=== PATIENT | female | born 1945 | race African-American/Black ===

== ENCOUNTER 2017-01-24 15:19 | Inpatient (IN) | payer MEDICARE, MEDICAID ==
[2017-01-24] VITALS: BP 129/70
[~2017-01-24] VITALS: Ht 162.6 cm; Wt 64.6 kg
[~2017-01-24 15:19] MED LIST: CLON0.1T PO; DIAZ5TAB4; DIAZ5TAB4 PO; FLUT1DIS5; LEVO750T46 PO; MONT10TA24 PO; MONT4TAB8; OXYC5CAP12 PO; PANT40TA4 PO; THEO80SO PO; THEOPHYLLINE PO
[2017-01-24 16:59] LABS: BG BASE EXCESS 4.7 mmol/L (-2.0-2.0); BG CARBOXYHEMOGLOBIN 2.6 % (0.5-1.5); BG DEOXYHEMOGLOBIN 3.9 % (0.0-5.0); BG HCO3 ACT 33.9 mmol/L (22.0-26.0); BG METHEMOGLOBIN 0.3 % (0.0-1.5); BG OXYHEMOGLOBIN 93.2 % (94.0-97.0); BG PH 7.256 (7.350-7.450); BG PO2 88.3 mmHg (75.0-100.0); BG SAMPLE SITE RIGHT RADIAL; BG TOTAL HEMOGLOBIN 11.6 g/dL (12.0-18.0); BG VENT MODE NASAL CANNULA
[2017-01-24 17:51] LABS: BASOPHILS % 0.7 % (0.0-2.0); EOSINOPHILS % 5.3 % (0.0-5.0); HEMATOCRIT. 32.5 % (36.0-48.0); HEMOGLOBIN. 10.4 g/dL (12.0-16.0); LYMPHOCYTES % 22.1 % (20.0-50.0); MEAN CORPUSCULAR VOLUME 90.3 fL (81.0-99.0); NEUTROPHILS % 62.9 % (40.0-76.0); PLATELET 229 x1000/uL (130-400); RED CELL DISTRIBUTION WIDTH 14.5 % (11.6-14.6)
[2017-01-24 17:52] LABS: PROTHROMBIN TIME 10.4 sec
[2017-01-24 18:00] LABS: CARBON DIOXIDE 39 mEq/L (21-32); CHLORIDE 98 mEq/L (98-107)
[2017-01-24 18:02] LABS: TROPONIN I < 0.02 ng/mL (0.00-0.04)
[2017-01-24] MEDS ORDERED: METHYLPREDNISOLONE SOD SUCC 125 MG/2 ML VIAL IV ONE (18:15)
[2017-01-24] MEDS ORDERED: IPRATROPIUM/ALBUTEROL 0.5-3(2.5)MG/3ML NEB HHN ONE (18:15)
[2017-01-24] MEDS ORDERED: KETO15CR TP (19:24)
[2017-01-24] MEDS ORDERED: TIOT18CA3 IH (19:24)
[2017-01-24] MEDS ORDERED: DILTIAZEM PO (19:24)
[2017-01-24] MEDS ORDERED: NITR0.4T3 SL (19:24)
[2017-01-24] MEDS ORDERED: FAMO20TA8 PO (19:24)
[2017-01-24 22:15] VITALS: BP 126/85
[2017-01-24] MEDS ORDERED: CLONIDINE 0.1MG TABLET PO PRN (23:45)
[2017-01-24] MEDS ORDERED: DOCUSATE SODIUM 100MG CAPSULE PO PRN (23:45)
[2017-01-24] MEDS ORDERED: IPRATROPIUM/ALBUTEROL 0.5-3(2.5)MG/3ML NEB INH PRN (23:45)
[2017-01-24] MEDS ORDERED: HYDROCODONE/ACETAMINOPHEN 5/325MG TABLET PO PRN (23:45)
[2017-01-24] MEDS ORDERED: ONDANSETRON HCL 4MG/2ML VIAL IV PRN (23:45)
[2017-01-24] MEDS ORDERED: NA PHOS,M-B/NA PHOS,DI-BA ENEMA 118ML PR PRN (23:45)
[2017-01-24] MEDS ORDERED: GUAIFENESIN 200MG/10ML SUGAR FREE UDC PO PRN (23:45)
[2017-01-24] MEDS ORDERED: ACETAMINOPHEN 650MG/20.3ML UDC GT PRN (23:45)
[2017-01-24] MEDS ORDERED: ACETAMINOPHEN 650MG SUPP PR PRN (23:45)
[2017-01-24] MEDS ORDERED: MAGNESIUM/ALUMINUM HYDROXIDE/SIMETHICONE 30ML UDC PO PRN (23:45)
[2017-01-24] MEDS ORDERED: DIPHENHYDRAMINE 50MG/ML VIAL IV PRN (23:45)
[2017-01-24] MEDS ORDERED: ACETAMINOPHEN 325MG TABLET PO PRN (23:45)
[2017-01-25] MEDS: METHYLPREDNISOLONE SOD SUCC 125 MG/2 ML VIAL IV SCH ×5 (00:48→23:43)
[2017-01-25] MEDS: IPRATROPIUM/ALBUTEROL 0.5-3(2.5)MG/3ML NEB INH SCH ×3 (01:29→13:48)
[2017-01-25 04:00] VITALS: BP 160/98
[2017-01-25] MEDS: SODIUM CHLORIDE 0.9% INJ 3ML FLUSH IVF SCH ×3 (05:19→21:55)
[2017-01-25 07:07] LABS: CHLORIDE 98 mEq/L (98-107); LDL CHOLESTEROL 107 mg/dL (5-100)
[2017-01-25 07:10] LABS: HDL CHOLESTEROL 93 mg/dL (40-59)
[2017-01-25 08:00] VITALS: BP 125/82
[2017-01-25 08:08] LABS: CARBON DIOXIDE 42 mEq/L (21-32)
[2017-01-25 09:24] LABS: BASOPHILS % 0.7 % (0.0-2.0); EOSINOPHILS % 0.2 % (0.0-5.0); HEMATOCRIT. 35.6 % (36.0-48.0); HEMOGLOBIN. 11.2 g/dL (12.0-16.0); LYMPHOCYTES % 10.5 % (20.0-50.0); MEAN CORPUSCULAR HEMOGLOBIN 28.5 pg (28.0-32.0); MEAN CORPUSCULAR VOLUME 90.7 fL (81.0-99.0); MEAN PLATELET VOLUME 9.1 fl (7.4-10.4); MONOCYTES % 0.8 % (2.0-8.0); NEUTROPHILS % 87.8 % (40.0-76.0); PLATELET 242 x1000/uL (130-400); RED BLOOD CELL COUNT 3.92 mill/uL (4.2-5.4); RED CELL DISTRIBUTION WIDTH 14.1 % (11.6-14.6)
[2017-01-25 09:39] LABS: BG BASE EXCESS 6.4 mmol/L (-2.0-2.0); BG CARBOXYHEMOGLOBIN 1.2 % (0.5-1.5); BG DEOXYHEMOGLOBIN 8.9 % (0.0-5.0); BG FRACTION INSPIRED OXYGEN 32; BG METHEMOGLOBIN 0.3 % (0.0-1.5); BG OXYHEMOGLOBIN 89.6 % (94.0-97.0); BG PCO2 90.9 mmHg (35.0-45.0); BG PH 7.228 (7.350-7.450); BG PO2 66.3 mmHg (75.0-100.0); BG SAMPLE SITE RIGHT BRACHIAL; BG TOTAL HEMOGLOBIN 12.8 g/dL (12.0-18.0); BG VENT MODE NASAL CANNULA
[2017-01-25 12:00] VITALS: BP 121/90
[2017-01-25 16:00] VITALS: BP 121/74
[2017-01-25] MEDS ORDERED: IPRATROPIUM/ALBUTEROL 0.5-3(2.5)MG/3ML NEB HHN PRN (17:15)
[2017-01-25 17:24] LABS: CLARITY URINE CLEAR (CLEAR); COLOR URINE YELLOW (YELLOW); GLUCOSE URINE NEGATIVE (NEGATIVE); KETONES URINE NEGATIVE (NEGATIVE); LEUKOCYTE ESTERASE URINE NEGATIVE (NEGATIVE); NITRITE URINE NEGATIVE (NEGATIVE); OCCULT BLOOD URINE NEGATIVE (NEGATIVE); PH URINE 5.5 (4.5-8.0); PROTEIN URINE 2+ (NEGATIVE); UROBILINOGEN URINE 0.2 E.U./dL (0.2-1.0)
[2017-01-25 17:36] LABS: *AMPHETAMINES SCREEN URINE NEGATIVE (NEGATIVE); *BARBITURATES SCREEN URINE NEGATIVE (NEGATIVE); *BENZODIAZEPINES SCREEN URINE PRESUMTIVE POSITIVE (NEGATIVE); *COCAINE SCREEN URINE NEGATIVE (NEGATIVE); CANNABINOID URINE SCREEN NEGATIVE (NEGATIVE); METHADONE URINE SCREEN NEGATIVE (NEGATIVE); OPIATES URINE SCREEN PRESUMTIVE POSITIVE (NEGATIVE); PHENCYCLIDINE URINE SCREEN NEGATIVE (NEGATIVE)
[2017-01-25] MEDS: THEOPHYLLINE ANHYDROUS 80 MG/15 ML 120ML PO SCH ×2 (18:21→23:43)
[2017-01-25] MEDS ORDERED: LEVOFLOXACIN 500MG PREMIX 100 ML IV NR (18:30)
[2017-01-25] MEDS ORDERED: NITROGLYCERIN 0.4MG TABLET SL SL PRN (18:42)
[2017-01-25] MEDS ORDERED: MONTELUKAST SODIUM 10MG TABLET PO SCH (18:45)
[2017-01-25] MEDS: PANTOPRAZOLE 40MG DR TABLET PO SCH (18:56)
[2017-01-25 20:00] VITALS: BP 147/90
[2017-01-25] MEDS: IPRATROPIUM/ALBUTEROL 0.5-3(2.5)MG/3ML NEB HHN SCH (20:02)
[2017-01-25 20:53] LABS: BG BASE EXCESS 9.6 mmol/L (-2.0-2.0); BG DEOXYHEMOGLOBIN 17.6 % (0.0-5.0); BG FRACTION INSPIRED OXYGEN 30; BG HCO3 ACT 39.2 mmol/L (22.0-26.0); BG METHEMOGLOBIN 0.3 % (0.0-1.5); BG OXYGEN SATURATION 82.2 % (92.0-98.5); BG OXYHEMOGLOBIN 81.1 % (94.0-97.0); BG PCO2 80.7 mmHg (35.0-45.0); BG PH 7.304 (7.350-7.450); BG PO2 46.8 mmHg (75.0-100.0); BG SAMPLE SITE RIGHT RADIAL; BG TOTAL HEMOGLOBIN 13.5 g/dL (12.0-18.0); BG VENT MODE MASK - CPAP; BG VENT RATE 18 set
[2017-01-26] VITALS: BP 131/81
[2017-01-26] MEDS: IPRATROPIUM/ALBUTEROL 0.5-3(2.5)MG/3ML NEB HHN SCH ×6 (00:33→20:59)
[2017-01-26] MEDS: SODIUM CHLORIDE 0.9% INJ 3ML FLUSH IVF SCH ×3 (05:20→23:52)
[2017-01-26] MEDS: THEOPHYLLINE ANHYDROUS 80 MG/15 ML 120ML PO SCH ×4 (05:20→23:52)
[2017-01-26] MEDS: METHYLPREDNISOLONE SOD SUCC 125 MG/2 ML VIAL IV SCH ×4 (05:20→23:52)
[2017-01-26 08:00] VITALS: BP 147/92
[2017-01-26] MEDS: PANTOPRAZOLE 40MG DR TABLET PO SCH (08:45)
[2017-01-26 12:00] VITALS: BP 109/72
[2017-01-26] MEDS: LEVOFLOXACIN 250MG PREMIX 50 ML IV SCH (14:14)
[2017-01-26 16:00] VITALS: BP_SYST 117; BP_SYST 124; BP_DIAS 68; BP_DIAS 88
[2017-01-26] MEDS: DIAZEPAM 5 MG TABLET PO SCH (17:39)
[2017-01-26 18:10] LABS: BG BASE EXCESS 5.7 mmol/L (-2.0-2.0); BG CARBOXYHEMOGLOBIN 0.6 % (0.5-1.5); BG DEOXYHEMOGLOBIN 5.8 % (0.0-5.0); BG FRACTION INSPIRED OXYGEN 36; BG HCO3 ACT 33.4 mmol/L (22.0-26.0); BG METHEMOGLOBIN 0.2 % (0.0-1.5); BG OXYGEN SATURATION 94.2 % (92.0-98.5); BG OXYHEMOGLOBIN 93.4 % (94.0-97.0); BG PCO2 63.9 mmHg (35.0-45.0); BG PH 7.336 (7.350-7.450); BG PO2 74.6 mmHg (75.0-100.0); BG SAMPLE SITE RIGHT RADIAL; BG VENT MODE NASAL CANNULA
[2017-01-26] MEDS ORDERED: CLONIDINE 0.1MG TABLET PO PRN (19:00)
[2017-01-26] MEDS: MONTELUKAST SODIUM 10MG TABLET PO SCH (19:45)
[2017-01-26] MEDS: FAMOTIDINE 20MG TABLET PO SCH (19:45)
[2017-01-26 19:57] LABS: HEMATOCRIT. 35.4 % (36.0-48.0); HEMOGLOBIN. 11.4 g/dL (12.0-16.0); MEAN CORPUSCULAR HEMOGLOBIN 28.8 pg (28.0-32.0); MEAN CORPUSCULAR VOLUME 89.6 fL (81.0-99.0); MEAN PLATELET VOLUME 9.1 fl (7.4-10.4); PLATELET 268 x1000/uL (130-400); RED BLOOD CELL COUNT 3.96 mill/uL (4.2-5.4); RED CELL DISTRIBUTION WIDTH 14.4 % (11.6-14.6)
[2017-01-26 20:00] VITALS: BP 126/81
[2017-01-26 20:25] LABS: CARBON DIOXIDE 35 mEq/L (21-32); CHLORIDE 96 mEq/L (98-107)
[2017-01-26] MEDS ORDERED: THEOPHYLLINE ANHYDROUS 80 MG/15 ML 120ML PO SCH (21:00)
[2017-01-26 21:04] LABS: PLATELET ESTIMATE NORMAL
[2017-01-27] VITALS: BP 114/86
[2017-01-27] MEDS: IPRATROPIUM/ALBUTEROL 0.5-3(2.5)MG/3ML NEB HHN SCH ×6 (00:40→21:36)
[2017-01-27 04:00] VITALS: BP 147/87
[2017-01-27] MEDS: DIAZEPAM 5 MG TABLET PO SCH ×2 (05:14→17:25)
[2017-01-27] MEDS: THEOPHYLLINE ANHYDROUS 80 MG/15 ML 120ML PO SCH ×4 (05:14→23:21)
[2017-01-27] MEDS: METHYLPREDNISOLONE SOD SUCC 125 MG/2 ML VIAL IV SCH ×3 (05:14→17:26)
[2017-01-27] MEDS: SODIUM CHLORIDE 0.9% INJ 3ML FLUSH IVF SCH ×3 (05:14→23:21)
[2017-01-27 08:00] VITALS: BP 142/96
[2017-01-27 08:17] LABS: BG BASE EXCESS 9.9 mmol/L (-2.0-2.0); BG CARBOXYHEMOGLOBIN 0.5 % (0.5-1.5); BG DEOXYHEMOGLOBIN 2.1 % (0.0-5.0); BG FRACTION INSPIRED OXYGEN 36; BG HCO3 ACT 39.7 mmol/L (22.0-26.0); BG METHEMOGLOBIN 0.2 % (0.0-1.5); BG OXYGEN SATURATION 97.9 % (92.0-98.5); BG OXYHEMOGLOBIN 97.2 % (94.0-97.0); BG PCO2 86.8 mmHg (35.0-45.0); BG PH 7.278 (7.350-7.450); BG PO2 115.6 mmHg (75.0-100.0); BG SAMPLE SITE RIGHT RADIAL; BG TOTAL HEMOGLOBIN 11.8 g/dL (12.0-18.0); BG VENT MODE NASAL CANNULA
[2017-01-27] MEDS: FAMOTIDINE 20MG TABLET PO SCH (08:17)
[2017-01-27] MEDS ORDERED: DIAZEPAM 5 MG TABLET PO SCH (09:00)
[2017-01-27 12:00] VITALS: BP 122/75
[2017-01-27] MEDS: LEVOFLOXACIN 250MG PREMIX 50 ML IV SCH (15:06)
[2017-01-27] MEDS: BUDESONIDE 0.5MG/2ML NEB HHN SCH (15:44)
[2017-01-27 16:00] VITALS: BP 108/71
[2017-01-27] MEDS: MONTELUKAST SODIUM 10MG TABLET PO SCH (17:25)
[2017-01-27 19:53] VITALS: BP 132/90
[2017-01-28] VITALS: BP 116/73
[2017-01-28] MEDS: IPRATROPIUM/ALBUTEROL 0.5-3(2.5)MG/3ML NEB HHN SCH ×5 (00:55→20:48)
[2017-01-28] MEDS: BUDESONIDE 0.5MG/2ML NEB HHN SCH ×3 (00:55→20:48)
[2017-01-28] MEDS: SODIUM CHLORIDE 0.9% INJ 3ML FLUSH IVF SCH ×3 (05:24→22:21)
[2017-01-28] MEDS: DIAZEPAM 5 MG TABLET PO SCH ×2 (05:24→17:02)
[2017-01-28] MEDS: THEOPHYLLINE ANHYDROUS 80 MG/15 ML 120ML PO SCH ×3 (05:25→17:02)
[2017-01-28 06:00] VITALS: BP 128/76
[2017-01-28 08:00] VITALS: BP 123/69
[2017-01-28] MEDS: FAMOTIDINE 20MG TABLET PO SCH (08:21)
[2017-01-28] MEDS: METHYLPREDNISOLONE SOD SUCC 40 MG/ML VIAL IV SCH ×2 (08:22→17:02)
[2017-01-28 12:00] VITALS: BP 121/71
[2017-01-28] MEDS: LEVOFLOXACIN 250MG PREMIX 50 ML IV SCH (14:43)
[2017-01-28 16:00] VITALS: BP 131/79
[2017-01-28] MEDS: MONTELUKAST SODIUM 10MG TABLET PO SCH (17:12)
[2017-01-28 20:00] VITALS: BP 102/73
[2017-01-29] VITALS: BP 117/59
[2017-01-29] MEDS: THEOPHYLLINE ANHYDROUS 80 MG/15 ML 120ML PO SCH ×4 (00:29→17:44)
[2017-01-29] MEDS: IPRATROPIUM/ALBUTEROL 0.5-3(2.5)MG/3ML NEB HHN SCH ×6 (00:29→20:15)
[2017-01-29 04:00] VITALS: BP 101/65
[2017-01-29] MEDS: DIAZEPAM 5 MG TABLET PO SCH ×2 (05:49→17:44)
[2017-01-29] MEDS: SODIUM CHLORIDE 0.9% INJ 3ML FLUSH IVF SCH ×2 (05:53→08:53)
[2017-01-29 08:00] VITALS: BP 127/70
[2017-01-29] MEDS: FAMOTIDINE 20MG TABLET PO SCH (08:51)
[2017-01-29] MEDS: METHYLPREDNISOLONE SOD SUCC 40 MG/ML VIAL IV SCH ×2 (08:51→16:11)
[2017-01-29] MEDS: BUDESONIDE 0.5MG/2ML NEB HHN SCH ×2 (09:06→20:15)
[2017-01-29 12:00] VITALS: BP 149/82
[2017-01-29 14:10] VITALS: BP 149/98
[2017-01-29] MEDS: LEVOFLOXACIN 250MG PREMIX 50 ML IV SCH (14:23)
[2017-01-29 16:00] VITALS: BP 133/78
[2017-01-29] MEDS: MONTELUKAST SODIUM 10MG TABLET PO SCH (17:44)
== END 2017-01-29 20:45 | disposition home or self-care (01) | DRG 189 ==
LOC: ER 16:09 → 7WST 18:12 → ENRESERV 21:24 → CANBEDREQ 01-25 02:18
PROVIDERS: ADMIT Family Medicine; ATTEND Family Medicine
PROC: 5A09357 Assistance with Respiratory Ventilation, Less than 24 Consecutive Hours, Continuous Positive Airway Pressure (ICD-10-PCS; principal; 2017-01-25)
DX: J96.21 Acute and chronic respiratory failure with hypoxia (principal); J44.1 Chronic obstructive pulmonary disease with (acute) exacerbation; J45.901 Unspecified asthma with (acute) exacerbation; E87.2 Acidosis; I11.9 Hypertensive heart disease without heart failure; E83.51 Hypocalcemia; D64.9 Anemia, unspecified; E78.5 Hyperlipidemia, unspecified; F17.200 Nicotine dependence, unspecified, uncomplicated; F41.9 Anxiety disorder, unspecified; Z90.49 Acquired absence of other specified parts of digestive tract; Z99.81 Dependence on supplemental oxygen; Z88.0 Allergy status to penicillin; Z91.018 Allergy to other foods; Z90.710 Acquired absence of both cervix and uterus
CPT/HCPCS: 36415; 36600; 71010; 80053; 80061; 80305; 81001; 82375; 82805; 83880; 84484; 85025; 85610; 87070; 93005; 93306; 94640; 94660; 96374; 99285; J1956; J2920; J2930; J7040; J7050; J7620; J7626

== ENCOUNTER 2017-04-12 15:51 | Inpatient (IN) | payer MEDICARE, MEDICAID ==
[~2017-04-12] VITALS: Ht 152.4 cm; Wt 75.3 kg
[~2017-04-12 15:51] MED LIST changes: +DILTIAZEM PO; +FAMO20TA8 PO; +KETO15CR TP; -MONT4TAB8; +MONT4TAB9; +NITR0.4T49 SL; +TIOT18CA3 IH
[2017-04-12] MEDS ORDERED: METHYLPREDNISOLONE SOD SUCC 125 MG/2 ML VIAL IV STA (16:00)
[2017-04-12] MEDS ORDERED: IPRATROPIUM BROMIDE (0.02%) 0.5MG/2.5ML NEB HHN STA (16:00)
[2017-04-12] MEDS ORDERED: ALBUTEROL (0.083%) 2.5MG/3ML NEB HHN STA (16:00)
[2017-04-12 17:16] LABS: BASOPHILS % 0.4 % (0.0-2.0); EOSINOPHILS % 6.3 % (0.0-5.0); HEMATOCRIT. 34.3 % (36.0-48.0); LYMPHOCYTES % 27.2 % (20.0-50.0); MEAN CORPUSCULAR HEMOGLOBIN 29.3 pg (28.0-32.0); MEAN CORPUSCULAR VOLUME 91.4 fL (81.0-99.0); MEAN PLATELET VOLUME 8.6 fl (7.4-10.4); MONOCYTES % 12.5 % (2.0-8.0); NEUTROPHILS % 53.6 % (40.0-76.0); PLATELET 181 x1000/uL (130-400); RED BLOOD CELL COUNT 3.76 mill/uL (4.2-5.4); RED CELL DISTRIBUTION WIDTH 14.7 % (11.6-14.6)
[2017-04-12 17:23] LABS: CHLORIDE 102 mEq/L (98-107); PROTHROMBIN TIME 10.2 sec (9.4-11.6)
[2017-04-12 17:26] LABS: CARBON DIOXIDE 38 mEq/L (21-32)
[2017-04-12] MEDS ORDERED: LORAZEPAM 2MG/ML CPJ IV PRN (18:45)
[2017-04-12] MEDS ORDERED: DIPHENHYDRAMINE 50MG/ML VIAL IV PRN (18:45)
[2017-04-12] MEDS ORDERED: NA PHOS,M-B/NA PHOS,DI-BA ENEMA 118ML PR PRN (18:45)
[2017-04-12] MEDS ORDERED: GUAIFENESIN 200MG/10ML SUGAR FREE UDC PO PRN (18:45)
[2017-04-12] MEDS ORDERED: ZOLPIDEM TARTRATE 5MG TABLET PO PRN (18:45)
[2017-04-12] MEDS ORDERED: DOCUSATE SODIUM 100MG CAPSULE PO PRN (18:45)
[2017-04-12] MEDS ORDERED: MAGNESIUM/ALUMINUM HYDROXIDE/SIMETHICONE 30ML UDC PO PRN (18:45)
[2017-04-12] MEDS ORDERED: NITROGLYCERIN 0.4MG TABLET SL SL PRN (18:45)
[2017-04-12] MEDS ORDERED: ONDANSETRON HCL 4MG/2ML VIAL IV PRN (18:45)
[2017-04-12] MEDS ORDERED: ACETAMINOPHEN 325MG TABLET PO PRN (18:45)
[2017-04-12] MEDS ORDERED: MORPHINE SULFATE 2 MG/ML CPJ (NOT FOR IM USE) IV PRN (18:45)
[2017-04-12] MEDS ORDERED: TRAMADOL 50MG TABLET PO PRN (18:45)
[2017-04-12] MEDS ORDERED: IPRATROPIUM/ALBUTEROL 0.5-3(2.5)MG/3ML NEB INH PRN (18:45)
[2017-04-12] MEDS: IPRATROPIUM/ALBUTEROL 0.5-3(2.5)MG/3ML NEB HHN SCH (20:05)
[2017-04-12 21:09] VITALS: BP 149/60
[2017-04-12 22:10] VITALS: BP 149/60
[2017-04-12 22:11] LABS: CREATINE KINASE 86 IU/L (26-192); CREATINE KINASE MB FRACTION 2.6 ng/mL (0.5-3.6); TROPONIN I < 0.02 ng/mL (0.00-0.04)
[2017-04-12] MEDS: METHYLPREDNISOLONE SOD SUCC 125 MG/2 ML VIAL IV SCH (23:04)
[2017-04-13] VITALS (7 sets, daily range): BP systolic 131–162; BP diastolic 62–88
[2017-04-13] MEDS ORDERED: LEVOFLOXACIN 500MG PREMIX 100 ML IV NR
[2017-04-13] MEDS: IPRATROPIUM/ALBUTEROL 0.5-3(2.5)MG/3ML NEB HHN SCH ×6 (01:38→20:12)
[2017-04-13 04:35] LABS: *AMPHETAMINES SCREEN URINE NEGATIVE (NEGATIVE); *BARBITURATES SCREEN URINE NEGATIVE (NEGATIVE); *BENZODIAZEPINES SCREEN URINE PRESUMTIVE POSITIVE (NEGATIVE); *COCAINE SCREEN URINE NEGATIVE (NEGATIVE); CANNABINOID URINE SCREEN NEGATIVE (NEGATIVE); METHADONE URINE SCREEN NEGATIVE (NEGATIVE); OPIATES URINE SCREEN NEGATIVE (NEGATIVE); PHENCYCLIDINE URINE SCREEN NEGATIVE (NEGATIVE)
[2017-04-13] MEDS: METHYLPREDNISOLONE SOD SUCC 125 MG/2 ML VIAL IV SCH ×3 (06:01→22:01)
[2017-04-13 08:09] LABS: CREATINE KINASE 124 IU/L (26-192); CREATINE KINASE MB FRACTION 4.6 ng/mL (0.5-3.6); TROPONIN I < 0.02 ng/mL (0.00-0.04)
[2017-04-13] MEDS: ASPIRIN 325MG EC TABLET PO SCH (09:52)
[2017-04-13] MEDS: FAMOTIDINE 20MG/2ML VIAL IV SCH (09:52)
[2017-04-13] MEDS: GUAIFENESIN/DM 600MG/30MG ER TAB 12HR PO SCH ×2 (09:52→22:01)
[2017-04-13] MEDS: ENOXAPARIN 40MG/0.4ML SYR SUBCUT SCH (09:53)
[2017-04-13] MEDS: DIAZEPAM 5 MG TABLET PO SCH ×2 (11:08→17:27)
[2017-04-13] MEDS: CLONIDINE 0.1MG TABLET PO PRN (12:56)
[2017-04-13] MEDS ORDERED: MORPHINE SULFATE 4 MG/ML CPJ (NOT FOR IM USE) IV PRN (14:23)
[2017-04-13] MEDS ORDERED: NICOTINE 21MG PATCH TD SCH (16:00)
[2017-04-13 17:02] LABS: CLARITY URINE CLEAR (CLEAR); COLOR URINE YELLOW (YELLOW); GLUCOSE URINE NEGATIVE (NEGATIVE); KETONES URINE NEGATIVE (NEGATIVE); LEUKOCYTE ESTERASE URINE NEGATIVE (NEGATIVE); NITRITE URINE NEGATIVE (NEGATIVE); OCCULT BLOOD URINE NEGATIVE (NEGATIVE); PH URINE 5.5 (4.5-8.0); PROTEIN URINE 1+ (NEGATIVE); SPECIFIC GRAVITY URINE 1.023 (1.005-1.030); UROBILINOGEN URINE 0.2 E.U./dL (0.2-1.0)
[2017-04-13] MEDS: BUDESONIDE 0.5MG/2ML NEB HHN SCH (17:21)
[2017-04-14] VITALS: BP 146/76
[2017-04-14] MEDS: IPRATROPIUM/ALBUTEROL 0.5-3(2.5)MG/3ML NEB HHN SCH ×6 (00:13→20:32)
[2017-04-14] MEDS: LEVOFLOXACIN 250MG PREMIX 50 ML IV SCH (00:19)
[2017-04-14 04:00] VITALS: BP 144/80
[2017-04-14] MEDS: METHYLPREDNISOLONE SOD SUCC 125 MG/2 ML VIAL IV SCH ×2 (06:42→14:30)
[2017-04-14] MEDS: BUDESONIDE 0.5MG/2ML NEB HHN SCH ×2 (07:34→20:33)
[2017-04-14 08:00] VITALS: BP 139/72
[2017-04-14] MEDS: FAMOTIDINE 20MG/2ML VIAL IV SCH (08:50)
[2017-04-14] MEDS: ASPIRIN 325MG EC TABLET PO SCH (08:50)
[2017-04-14] MEDS: GUAIFENESIN/DM 600MG/30MG ER TAB 12HR PO SCH ×2 (08:50→21:15)
[2017-04-14] MEDS: NICOTINE 21MG PATCH TD SCH (08:50)
[2017-04-14] MEDS: ENOXAPARIN 40MG/0.4ML SYR SUBCUT SCH (08:50)
[2017-04-14] MEDS: DIAZEPAM 5 MG TABLET PO SCH ×2 (08:50→17:18)
[2017-04-14 12:00] VITALS: BP 145/63
[2017-04-14 16:00] VITALS: BP 164/92
[2017-04-14] MEDS: FLUTICASONE PROPIONATE 50MCG/SPRAY BOTTLE BOTHNSTRLS SCH (17:18)
[2017-04-14] MEDS: CLONIDINE 0.1MG TABLET PO PRN (17:18)
[2017-04-14 20:00] VITALS: BP 145/78
[2017-04-14] MEDS: METHYLPREDNISOLONE SOD SUCC 40 MG/ML VIAL IV SCH (21:15)
[2017-04-14] MEDS: MONTELUKAST SODIUM 10MG TABLET PO SCH (21:27)
[2017-04-15] VITALS: BP 128/68
[2017-04-15] MEDS: LEVOFLOXACIN 250MG PREMIX 50 ML IV SCH (00:30)
[2017-04-15] MEDS: IPRATROPIUM/ALBUTEROL 0.5-3(2.5)MG/3ML NEB HHN SCH ×7 (00:33→23:39)
[2017-04-15 04:00] VITALS: BP 132/75
[2017-04-15] MEDS: METHYLPREDNISOLONE SOD SUCC 40 MG/ML VIAL IV SCH ×3 (06:21→21:30)
[2017-04-15 08:00] VITALS: BP 133/64
[2017-04-15] MEDS: NICOTINE 21MG PATCH TD SCH (09:00)
[2017-04-15] MEDS: BUDESONIDE 0.5MG/2ML NEB HHN SCH ×2 (09:06→19:59)
[2017-04-15] MEDS: FLUTICASONE PROPIONATE 50MCG/SPRAY BOTTLE BOTHNSTRLS SCH (09:07)
[2017-04-15] MEDS: ASPIRIN 325MG EC TABLET PO SCH (09:07)
[2017-04-15] MEDS: FAMOTIDINE 20MG/2ML VIAL IV SCH (09:07)
[2017-04-15] MEDS: DIAZEPAM 5 MG TABLET PO SCH ×2 (09:07→16:31)
[2017-04-15] MEDS: GUAIFENESIN/DM 600MG/30MG ER TAB 12HR PO SCH ×2 (09:07→21:30)
[2017-04-15] MEDS: ENOXAPARIN 40MG/0.4ML SYR SUBCUT SCH (09:08)
[2017-04-15 12:00] VITALS: BP 141/94
[2017-04-15] MEDS ORDERED: TERBUTALINE SULFATE 1MG/ML VIAL SUBCUT SCH (13:15)
[2017-04-15 17:10] VITALS: BP_SYST 140; BP_SYST 141; BP_DIAS 78; BP_DIAS 94
[2017-04-15 20:00] VITALS: BP 145/73
[2017-04-15] MEDS: MONTELUKAST SODIUM 10MG TABLET PO SCH (21:30)
[2017-04-16] VITALS: BP 150/84
[2017-04-16] MEDS: LEVOFLOXACIN 250MG PREMIX 50 ML IV SCH (00:08)
[2017-04-16] MEDS: IPRATROPIUM/ALBUTEROL 0.5-3(2.5)MG/3ML NEB HHN SCH ×5 (01:52→20:46)
[2017-04-16 04:00] VITALS: BP 161/74
[2017-04-16] MEDS: METHYLPREDNISOLONE SOD SUCC 40 MG/ML VIAL IV SCH ×3 (05:49→21:51)
[2017-04-16] MEDS: CLONIDINE 0.1MG TABLET PO PRN (05:49)
[2017-04-16 06:40] LABS: HEMOGLOBIN 11.5 g/dL (12.0-16.0); MEAN CORPUSCULAR VOLUME 90.8 fL (81.0-99.0); PLATELET 202 x1000/uL (130-400); RED BLOOD CELL COUNT 3.96 mill/uL (4.2-5.4); RED CELL DISTRIBUTION WIDTH 14.7 % (11.6-14.6)
[2017-04-16 08:00] VITALS: BP 129/65
[2017-04-16] MEDS: BUDESONIDE 0.5MG/2ML NEB HHN SCH ×2 (08:26→20:46)
[2017-04-16] MEDS: ASPIRIN 325MG EC TABLET PO SCH (08:44)
[2017-04-16] MEDS: GUAIFENESIN/DM 600MG/30MG ER TAB 12HR PO SCH ×2 (08:45→21:51)
[2017-04-16] MEDS: FAMOTIDINE 20MG/2ML VIAL IV SCH (08:45)
[2017-04-16] MEDS: DIAZEPAM 5 MG TABLET PO SCH ×2 (08:45→17:06)
[2017-04-16] MEDS: ENOXAPARIN 40MG/0.4ML SYR SUBCUT SCH (08:45)
[2017-04-16] MEDS: FLUTICASONE PROPIONATE 50MCG/SPRAY BOTTLE BOTHNSTRLS SCH (08:46)
[2017-04-16] MEDS: NICOTINE 21MG PATCH TD SCH (08:49)
[2017-04-16 12:16] VITALS: BP 152/71
[2017-04-16 17:08] VITALS: BP 145/74
[2017-04-16 20:00] VITALS: BP_SYST 145; BP_SYST 92; BP_DIAS 55; BP_DIAS 63
[2017-04-16] MEDS ORDERED: BUDESONIDE 0.5MG/2ML NEB ONE (20:52)
[2017-04-16] MEDS: MONTELUKAST SODIUM 10MG TABLET PO SCH (21:51)
[2017-04-16] MEDS: LEVOFLOXACIN 250MG TABLET PO SCH (23:46)
[2017-04-17] VITALS: BP_SYST 108; BP_SYST 136; BP_DIAS 48; BP_DIAS 62
[2017-04-17] MEDS: IPRATROPIUM/ALBUTEROL 0.5-3(2.5)MG/3ML NEB HHN SCH ×6 (00:56→20:50)
[2017-04-17 04:00] VITALS: BP_SYST 114; BP_SYST 140; BP_DIAS 56; BP_DIAS 62
[2017-04-17] MEDS: METHYLPREDNISOLONE SOD SUCC 40 MG/ML VIAL IV SCH ×2 (06:42→14:27)
[2017-04-17 08:01] VITALS: BP 135/74
[2017-04-17] MEDS: FAMOTIDINE 20MG/2ML VIAL IV SCH ×2 (09:21→21:34)
[2017-04-17] MEDS: GUAIFENESIN/DM 600MG/30MG ER TAB 12HR PO SCH ×2 (09:22→21:35)
[2017-04-17] MEDS: ASPIRIN 325MG EC TABLET PO SCH (09:22)
[2017-04-17] MEDS: ENOXAPARIN 40MG/0.4ML SYR SUBCUT SCH (09:22)
[2017-04-17] MEDS: DIAZEPAM 5 MG TABLET PO SCH ×2 (09:22→17:33)
[2017-04-17] MEDS: FLUTICASONE PROPIONATE 50MCG/SPRAY BOTTLE BOTHNSTRLS SCH (09:24)
[2017-04-17 12:40] VITALS: BP 140/81
[2017-04-17] MEDS ORDERED: TERBUTALINE SULFATE 1MG/ML VIAL SUBCUT NR (14:45)
[2017-04-17] MEDS: BUDESONIDE 0.5MG/2ML NEB HHN SCH (16:04)
[2017-04-17 16:42] VITALS: BP 154/81
[2017-04-17] MEDS: PREDNISONE 20MG TABLET PO SCH (17:33)
[2017-04-17 20:00] VITALS: BP 137/69
[2017-04-17] MEDS: MONTELUKAST SODIUM 10MG TABLET PO SCH (21:35)
[2017-04-17] MEDS: LORATADINE 10MG TABLET PO SCH (23:20)
[2017-04-17] MEDS: LEVOFLOXACIN 250MG TABLET PO SCH (23:20)
[2017-04-18] VITALS: BP 137/66
[2017-04-18] MEDS: IPRATROPIUM/ALBUTEROL 0.5-3(2.5)MG/3ML NEB HHN SCH ×6 (00:44→21:38)
[2017-04-18 04:00] VITALS: BP 154/74
[2017-04-18] MEDS: BUDESONIDE 0.5MG/2ML NEB HHN SCH ×2 (07:40→21:37)
[2017-04-18 08:00] VITALS: BP 144/62
[2017-04-18] MEDS: ENOXAPARIN 40MG/0.4ML SYR SUBCUT SCH (08:23)
[2017-04-18] MEDS: GUAIFENESIN/DM 600MG/30MG ER TAB 12HR PO SCH ×2 (08:24→20:42)
[2017-04-18] MEDS: DIAZEPAM 5 MG TABLET PO SCH (08:24)
[2017-04-18] MEDS: PREDNISONE 20MG TABLET PO SCH ×2 (08:28→18:45)
[2017-04-18] MEDS: ASPIRIN 325MG EC TABLET PO SCH (08:28)
[2017-04-18 12:00] VITALS: BP 142/65
[2017-04-18 16:00] VITALS: BP 138/69
[2017-04-18 20:00] VITALS: BP 169/74
[2017-04-18] MEDS: CLONIDINE 0.1MG TABLET PO PRN (20:42)
[2017-04-18] MEDS: LORATADINE 10MG TABLET PO SCH (20:42)
[2017-04-18] MEDS: MONTELUKAST SODIUM 10MG TABLET PO SCH (20:43)
[2017-04-18] MEDS: FAMOTIDINE 20MG/2ML VIAL IV SCH (20:43)
[2017-04-19] VITALS: BP 128/62
[2017-04-19] MEDS: LEVOFLOXACIN 250MG TABLET PO SCH (00:03)
[2017-04-19] MEDS: IPRATROPIUM/ALBUTEROL 0.5-3(2.5)MG/3ML NEB HHN SCH ×5 (01:16→16:27)
[2017-04-19 04:00] VITALS: BP 141/67
[2017-04-19 08:00] VITALS: BP 145/82
[2017-04-19] MEDS: PREDNISONE 20MG TABLET PO SCH (08:25)
[2017-04-19] MEDS: ASPIRIN 325MG EC TABLET PO SCH (08:25)
[2017-04-19] MEDS: ENOXAPARIN 40MG/0.4ML SYR SUBCUT SCH (08:25)
[2017-04-19] MEDS: GUAIFENESIN/DM 600MG/30MG ER TAB 12HR PO SCH (08:25)
[2017-04-19] MEDS: BUDESONIDE 0.5MG/2ML NEB HHN SCH (08:42)
[2017-04-19 12:00] VITALS: BP 142/68
[2017-04-19 15:52] VITALS: BP 142/72
[2017-04-19 16:00] VITALS: BP 143/82
== END 2017-04-19 17:00 | DRG 189 ==
LOC: ER 16:31 → 5WST 19:14 → EDBEDREQ 19:15 → EDBEDREQTM 19:15 → EDBEDREQSVC 19:15 → ENRESERV 20:14
PROVIDERS: ADMIT Internal Medicine; ATTEND Internal Medicine
DX: J96.00 Acute respiratory failure, unspecified whether with hypoxia or hypercapnia (principal); J44.1 Chronic obstructive pulmonary disease with (acute) exacerbation; D63.8 Anemia in other chronic diseases classified elsewhere; Z99.81 Dependence on supplemental oxygen; F41.9 Anxiety disorder, unspecified; F17.210 Nicotine dependence, cigarettes, uncomplicated; G89.4 Chronic pain syndrome; J30.9 Allergic rhinitis, unspecified; I10 Essential (primary) hypertension; Z90.49 Acquired absence of other specified parts of digestive tract; Z90.710 Acquired absence of both cervix and uterus; Z88.0 Allergy status to penicillin
CPT/HCPCS: 36415; 71010; 71250; 80048; 80053; 80061; 80305; 81001; 82550; 82553; 83036; 83605; 84484; 85025; 85027; 85610; 87040; 87086; 87804; 93005; 93970; 94640; 94644; 94664; 96374; 97110; 97162; 97166; 99285; C1893; J1200; J1650; J1956; J2060; J2920; J2930; J3105; J3490; J7040; J7512; J7611; J7620; J7626

== ENCOUNTER 2018-04-12 22:39 | Inpatient (IN) | payer MEDICARE, MEDICAID ==
[~2018-04-12] VITALS: Ht 165.1 cm; Wt 78.0 kg
[~2018-04-12 22:39] MED LIST changes: +ALBU18HF2 IH; -DIAZ5TAB4; -MONT10TA24 PO; -THEO80SO PO
[2018-04-12] MEDS ORDERED: IPRATROPIUM BROMIDE (0.02%) 0.5MG/2.5ML NEB HHN STA (22:45)
[2018-04-12] MEDS ORDERED: MAGNESIUM 2 G PREMIX 50 ML IV STA (22:45)
[2018-04-12] MEDS ORDERED: ALBUTEROL (0.083%) 2.5MG/3ML NEB HHN STA (22:45)
[2018-04-12] MEDS ORDERED: METHYLPREDNISOLONE SOD SUCC 125 MG/2 ML VIAL IV STA (22:45)
[2018-04-12] MEDS ORDERED: ALBUTEROL (0.083%) 2.5MG/3ML NEB ONE (22:56)
[2018-04-12] MEDS ORDERED: IPRATROPIUM BROMIDE (0.02%) 0.5MG/2.5ML NEB ONE (22:56)
[2018-04-12 23:45] LABS: BASOPHILS % 1.2 % (0.0-2.0); EOSINOPHILS % 2.4 % (0.0-5.0); HEMATOCRIT. 30.2 % (36.0-48.0); HEMOGLOBIN. 9.4 g/dL (12.0-16.0); LYMPHOCYTES % 25.2 % (20.0-50.0); MEAN CORPUSCULAR HEMOGLOBIN 27.5 pg (28.0-32.0); MEAN CORPUSCULAR VOLUME 88.6 fL (81.0-99.0); MEAN PLATELET VOLUME 8.7 fl (7.4-10.4); MONOCYTES % 9.2 % (2.0-8.0); PLATELET 225 x1000/uL (130-400); RED BLOOD CELL COUNT 3.41 mill/uL (4.2-5.4); RED CELL DISTRIBUTION WIDTH 15.7 % (11.6-14.6)
[2018-04-12 23:53] LABS: CHLORIDE 96 mEq/L (98-107)
[2018-04-13] VITALS (9 sets, daily range): BP systolic 112–148; BP diastolic 65–86
[2018-04-13] MEDS ORDERED: TRAMADOL 50MG TABLET PO PRN (08:30)
[2018-04-13] MEDS ORDERED: LEVOFLOXACIN 500MG PREMIX 100 ML IV SCH ×2 (08:30→11:30)
[2018-04-13] MEDS ORDERED: CLONIDINE 0.1MG TABLET PO PRN (08:30)
[2018-04-13] MEDS ORDERED: NITROGLYCERIN 0.4MG TABLET SL SL PRN (08:30)
[2018-04-13] MEDS ORDERED: MAGNESIUM/ALUMINUM HYDROXIDE/SIMETHICONE 30ML UDC PO PRN (08:30)
[2018-04-13] MEDS ORDERED: NA PHOS,M-B/NA PHOS,DI-BA ENEMA 118ML PR PRN (08:30)
[2018-04-13] MEDS ORDERED: ENOXAPARIN 40MG/0.4ML SYR SUBCUT SCH (08:30)
[2018-04-13] MEDS ORDERED: IPRATROPIUM/ALBUTEROL 0.5-3(2.5)MG/3ML NEB INH PRN (08:30)
[2018-04-13] MEDS ORDERED: ONDANSETRON HCL 4MG/2ML INJ IV PRN (08:30)
[2018-04-13] MEDS ORDERED: DIPHENHYDRAMINE 50MG/ML VIAL IV PRN (08:30)
[2018-04-13] MEDS ORDERED: GUAIFENESIN 200MG/10ML SUGAR FREE UDC PO PRN (08:30)
[2018-04-13] MEDS: FAMOTIDINE 20MG TABLET PO SCH (10:18)
[2018-04-13] MEDS: ASPIRIN 325MG EC TABLET PO SCH (10:18)
[2018-04-13] MEDS: SUCRALFATE 1 G/10 ML UDC PO SCH ×4 (10:18→21:12)
[2018-04-13] MEDS: GUAIFENESIN/DM 600MG/30MG ER TAB 12HR PO SCH ×2 (10:18→21:12)
[2018-04-13] MEDS: ENOXAPARIN 30MG/0.3ML SYR SUBCUT SCH (10:19)
[2018-04-13] MEDS: LEVOFLOXACIN 500MG PREMIX 100 ML IV SCH (13:33)
[2018-04-13] MEDS: METHYLPREDNISOLONE SOD SUCC 125 MG/2 ML VIAL IV SCH ×2 (13:33→21:12)
[2018-04-13] MEDS: LORAZEPAM 0.5MG TABLET PO PRN ×2 (13:33→22:15)
[2018-04-13 15:53] LABS: CREATINE KINASE 210 IU/L (26-192)
[2018-04-13 15:54] LABS: CREATINE KINASE MB FRACTION 2.6 ng/mL (0.5-3.6)
[2018-04-13] MEDS: BUDESONIDE 0.5MG/2ML NEB HHN SCH (20:33)
[2018-04-13] MEDS: IPRATROPIUM/ALBUTEROL 0.5-3(2.5)MG/3ML NEB HHN SCH (20:34)
[2018-04-13] MEDS ORDERED: ZOLPIDEM TARTRATE 5MG TABLET PO PRN (21:00)
[2018-04-14] VITALS (9 sets, daily range): BP systolic 101–146; BP diastolic 56–79
[2018-04-14 00:05] LABS: CREATINE KINASE 197 IU/L (26-192)
[2018-04-14 00:06] LABS: CREATINE KINASE MB FRACTION 2.4 ng/mL (0.5-3.6)
[2018-04-14] MEDS: IPRATROPIUM/ALBUTEROL 0.5-3(2.5)MG/3ML NEB HHN SCH ×6 (00:30→19:55)
[2018-04-14] MEDS: LORAZEPAM 0.5MG TABLET PO PRN ×2 (02:57→07:58)
[2018-04-14] MEDS: METHYLPREDNISOLONE SOD SUCC 125 MG/2 ML VIAL IV SCH ×3 (06:31→21:30)
[2018-04-14] MEDS: SUCRALFATE 1 G/10 ML UDC PO SCH ×4 (07:30→21:00)
[2018-04-14] MEDS: ASPIRIN 325MG EC TABLET PO SCH (07:58)
[2018-04-14] MEDS: FAMOTIDINE 20MG TABLET PO SCH (07:58)
[2018-04-14] MEDS: ENOXAPARIN 30MG/0.3ML SYR SUBCUT SCH (07:59)
[2018-04-14] MEDS: GUAIFENESIN/DM 600MG/30MG ER TAB 12HR PO SCH ×2 (09:00→21:28)
[2018-04-14] MEDS: BUDESONIDE 0.5MG/2ML NEB HHN SCH ×2 (09:03→19:51)
[2018-04-14] MEDS: MONTELUKAST SODIUM 10MG TABLET PO SCH (17:50)
[2018-04-14] MEDS: THEOPHYLLINE ANHYDROUS 80 MG/15 ML 120ML PO SCH (21:30)
[2018-04-15] VITALS: BP 126/66
[2018-04-15 04:00] VITALS: BP 132/66
[2018-04-15] MEDS: IPRATROPIUM/ALBUTEROL 0.5-3(2.5)MG/3ML NEB HHN SCH ×5 (04:10→20:53)
[2018-04-15] MEDS: METHYLPREDNISOLONE SOD SUCC 125 MG/2 ML VIAL IV SCH ×2 (05:55→14:28)
[2018-04-15] MEDS: LORAZEPAM 0.5MG TABLET PO PRN ×3 (05:55→23:46)
[2018-04-15] MEDS: THEOPHYLLINE ANHYDROUS 80 MG/15 ML 120ML PO SCH ×2 (05:55→15:01)
[2018-04-15] MEDS: SUCRALFATE 1 G/10 ML UDC PO SCH ×4 (07:19→21:00)
[2018-04-15 08:13] VITALS: BP 133/67
[2018-04-15] MEDS: GUAIFENESIN/DM 600MG/30MG ER TAB 12HR PO SCH ×2 (08:44→21:39)
[2018-04-15] MEDS: ASPIRIN 325MG EC TABLET PO SCH (08:44)
[2018-04-15] MEDS: FAMOTIDINE 20MG TABLET PO SCH (08:44)
[2018-04-15] MEDS: ENOXAPARIN 30MG/0.3ML SYR SUBCUT SCH (08:45)
[2018-04-15] MEDS: BUDESONIDE 0.5MG/2ML NEB HHN SCH ×2 (08:55→20:53)
[2018-04-15 12:00] VITALS: BP 129/65
[2018-04-15] MEDS: LEVOFLOXACIN 500MG PREMIX 100 ML IV SCH (14:27)
[2018-04-15 16:00] VITALS: BP 117/50
[2018-04-15] MEDS: MONTELUKAST SODIUM 10MG TABLET PO SCH (17:22)
[2018-04-15 20:00] VITALS: BP 146/68
[2018-04-15] MEDS: METHYLPREDNISOLONE SOD SUCC 40 MG/ML VIAL IV SCH (21:40)
[2018-04-16] VITALS: BP 124/59
[2018-04-16] MEDS: THEOPHYLLINE ANHYDROUS 80 MG/15 ML 120ML PO SCH ×4 (00:01→21:00)
[2018-04-16] MEDS: IPRATROPIUM/ALBUTEROL 0.5-3(2.5)MG/3ML NEB HHN SCH ×7 (00:50→23:41)
[2018-04-16 04:00] VITALS: BP 121/58
[2018-04-16] MEDS: METHYLPREDNISOLONE SOD SUCC 40 MG/ML VIAL IV SCH ×3 (06:25→20:44)
[2018-04-16] MEDS: SUCRALFATE 1 G/10 ML UDC PO SCH ×4 (06:26→20:50)
[2018-04-16] MEDS: BUDESONIDE 0.5MG/2ML NEB HHN SCH (07:49)
[2018-04-16 08:19] VITALS: BP 111/49
[2018-04-16] MEDS: FAMOTIDINE 20MG TABLET PO SCH (09:52)
[2018-04-16] MEDS: ASPIRIN 325MG EC TABLET PO SCH (09:53)
[2018-04-16] MEDS: GUAIFENESIN/DM 600MG/30MG ER TAB 12HR PO SCH ×2 (09:53→20:44)
[2018-04-16] MEDS: ENOXAPARIN 30MG/0.3ML SYR SUBCUT SCH (09:55)
[2018-04-16 12:34] VITALS: BP 139/72
[2018-04-16] MEDS: LORAZEPAM 0.5MG TABLET PO PRN ×2 (13:47→21:01)
[2018-04-16 16:39] VITALS: BP 139/71
[2018-04-16] MEDS: MONTELUKAST SODIUM 10MG TABLET PO SCH (17:12)
[2018-04-16 20:00] VITALS: BP 147/65
[2018-04-16] MEDS ORDERED: BUDESONIDE 0.5MG/2ML NEB HHN SCH (20:00)
[2018-04-17] VITALS: BP 107/86
[2018-04-17] MEDS: IPRATROPIUM/ALBUTEROL 0.5-3(2.5)MG/3ML NEB HHN SCH ×5 (04:16→20:19)
[2018-04-17] MEDS: THEOPHYLLINE ANHYDROUS 80 MG/15 ML 120ML PO SCH ×3 (05:42→22:02)
[2018-04-17] MEDS: SUCRALFATE 1 G/10 ML UDC PO SCH ×4 (06:24→21:00)
[2018-04-17] MEDS: FAMOTIDINE 20MG TABLET PO SCH (09:41)
[2018-04-17] MEDS: GUAIFENESIN/DM 600MG/30MG ER TAB 12HR PO SCH ×2 (09:41→21:00)
[2018-04-17] MEDS: METHYLPREDNISOLONE SOD SUCC 40 MG/ML VIAL IV SCH ×2 (09:42→22:12)
[2018-04-17] MEDS: ENOXAPARIN 30MG/0.3ML SYR SUBCUT SCH (09:43)
[2018-04-17] MEDS: ASPIRIN 325MG EC TABLET PO SCH (09:51)
[2018-04-17 12:00] VITALS: BP 155/69
[2018-04-17] MEDS: LEVOFLOXACIN 500MG PREMIX 100 ML IV SCH (12:42)
[2018-04-17] MEDS: DOCUSATE SODIUM 100MG CAPSULE PO PRN (14:01)
[2018-04-17] MEDS: LORAZEPAM 0.5MG TABLET PO PRN ×2 (15:49→22:21)
[2018-04-17 16:00] VITALS: BP 119/68
[2018-04-17] MEDS: MONTELUKAST SODIUM 10MG TABLET PO SCH (18:02)
[2018-04-17 20:00] VITALS: BP 132/66
[2018-04-18] VITALS: BP 137/57
[2018-04-18] MEDS: IPRATROPIUM/ALBUTEROL 0.5-3(2.5)MG/3ML NEB HHN SCH ×7 (00:53→23:56)
[2018-04-18 04:00] VITALS: BP 127/63
[2018-04-18] MEDS: THEOPHYLLINE ANHYDROUS 80 MG/15 ML 120ML PO SCH ×3 (07:00→21:02)
[2018-04-18] MEDS: SUCRALFATE 1 G/10 ML UDC PO SCH ×4 (07:27→21:01)
[2018-04-18 08:00] VITALS: BP 128/56
[2018-04-18] MEDS: FAMOTIDINE 20MG TABLET PO SCH (09:15)
[2018-04-18] MEDS: GUAIFENESIN/DM 600MG/30MG ER TAB 12HR PO SCH ×2 (09:15→21:05)
[2018-04-18] MEDS: ASPIRIN 325MG EC TABLET PO SCH (09:15)
[2018-04-18] MEDS: ENOXAPARIN 30MG/0.3ML SYR SUBCUT SCH (09:15)
[2018-04-18] MEDS: METHYLPREDNISOLONE SOD SUCC 40 MG/ML VIAL IV SCH ×2 (09:15→21:07)
[2018-04-18] MEDS: LORAZEPAM 2MG/ML CPJ IV PRN ×2 (11:19→21:07)
[2018-04-18 12:00] VITALS: BP 151/98
[2018-04-18 13:16] LABS: BG BASE EXCESS 5.2 mmol/L (-2.0-2.0); BG CARBOXYHEMOGLOBIN 0.6 % (0.5-1.5); BG DEOXYHEMOGLOBIN 5.8 % (0.0-5.0); BG FRACTION INSPIRED OXYGEN 36; BG HCO3 ACT 32.2 mmol/L (22.0-26.0); BG METHEMOGLOBIN 0.2 % (0.0-1.5); BG OXYGEN SATURATION 94.2 % (92.0-98.5); BG OXYHEMOGLOBIN 93.4 % (94.0-97.0); BG PCO2 61.2 mmHg (35.0-45.0); BG PH 7.339 (7.350-7.450); BG PO2 73.1 mmHg (75.0-100.0); BG SAMPLE SITE RIGHT BRACHIAL; BG VENT MODE NASAL CANNULA
[2018-04-18 16:00] VITALS: BP 128/67
[2018-04-18 16:55] LABS: BASOPHILS % 0.1 % (0.0-2.0); HEMATOCRIT. 28.8 % (36.0-48.0); HEMOGLOBIN. 9.3 g/dL (12.0-16.0); LYMPHOCYTES % 7.5 % (20.0-50.0); MEAN CORPUSCULAR HEMOGLOBIN 27.9 pg (28.0-32.0); MONOCYTES % 7.9 % (2.0-8.0); NEUTROPHILS % 84.5 % (40.0-76.0); PLATELET 243 x1000/uL (130-400); RED BLOOD CELL COUNT 3.31 mill/uL (4.2-5.4); RED CELL DISTRIBUTION WIDTH 16.2 % (11.6-14.6)
[2018-04-18] MEDS: MONTELUKAST SODIUM 10MG TABLET PO SCH (17:33)
[2018-04-18 20:00] VITALS: BP 122/63
[2018-04-18] MEDS: BUDESONIDE 0.5MG/2ML NEB HHN SCH (20:02)
[2018-04-18] MEDS ORDERED: FAMOTIDINE 20MG TABLET PO SCH (21:00)
[2018-04-19] VITALS: BP 149/72
[2018-04-19] MEDS: IPRATROPIUM/ALBUTEROL 0.5-3(2.5)MG/3ML NEB HHN SCH ×5 (03:56→21:26)
[2018-04-19 04:00] VITALS: BP 128/68
[2018-04-19] MEDS: THEOPHYLLINE ANHYDROUS 80 MG/15 ML 120ML PO SCH ×3 (05:05→21:55)
[2018-04-19] MEDS: ACETAMINOPHEN 325MG TABLET PO PRN (05:05)
[2018-04-19] MEDS: SUCRALFATE 1 G/10 ML UDC PO SCH ×4 (06:35→21:55)
[2018-04-19] MEDS: GUAIFENESIN/DM 600MG/30MG ER TAB 12HR PO SCH ×2 (07:51→21:55)
[2018-04-19] MEDS: METHYLPREDNISOLONE SOD SUCC 40 MG/ML VIAL IV SCH ×2 (07:51→21:55)
[2018-04-19] MEDS: DOCUSATE SODIUM 100MG CAPSULE PO PRN (07:51)
[2018-04-19] MEDS: FAMOTIDINE 20MG TABLET PO SCH (07:51)
[2018-04-19] MEDS: ENOXAPARIN 30MG/0.3ML SYR SUBCUT SCH (07:51)
[2018-04-19] MEDS: ASPIRIN 325MG EC TABLET PO SCH (07:51)
[2018-04-19 08:00] VITALS: BP 124/58
[2018-04-19] MEDS: BUDESONIDE 0.5MG/2ML NEB HHN SCH ×2 (08:01→21:26)
[2018-04-19 12:00] VITALS: BP 133/70
[2018-04-19] MEDS: LEVOFLOXACIN 500MG PREMIX 100 ML IV SCH (13:42)
[2018-04-19 15:15] LABS: CLARITY URINE CLEAR (CLEAR); COLOR URINE YELLOW (YELLOW); KETONES URINE NEGATIVE (NEGATIVE); LEUKOCYTE ESTERASE URINE NEGATIVE (NEGATIVE); NITRITE URINE NEGATIVE (NEGATIVE); OCCULT BLOOD URINE NEGATIVE (NEGATIVE); PROTEIN URINE NEGATIVE (NEGATIVE); SPECIFIC GRAVITY URINE 1.011 (1.005-1.030); UROBILINOGEN URINE 0.2 E.U./dL (0.2-1.0)
[2018-04-19 16:00] VITALS: BP 131/69
[2018-04-19] MEDS: LORAZEPAM 0.5MG TABLET PO PRN ×2 (17:03→23:21)
[2018-04-19] MEDS: MONTELUKAST SODIUM 10MG TABLET PO SCH (17:04)
[2018-04-19 20:00] VITALS: BP 132/65
[2018-04-19 20:39] LABS: BASOPHILS % 0.4 % (0.0-2.0); EOSINOPHILS % 0.1 % (0.0-5.0); HEMOGLOBIN. 8.8 g/dL (12.0-16.0); MEAN CORPUSCULAR HEMOGLOBIN 27.3 pg (28.0-32.0); MEAN CORPUSCULAR VOLUME 87.1 fL (81.0-99.0); MONOCYTES % 12.8 % (2.0-8.0); NEUTROPHILS % 73.7 % (40.0-76.0); PLATELET 236 x1000/uL (130-400); RED BLOOD CELL COUNT 3.21 mill/uL (4.2-5.4); RED CELL DISTRIBUTION WIDTH 16.3 % (11.6-14.6)
[2018-04-20] VITALS: BP 134/68
[2018-04-20] MEDS: IPRATROPIUM/ALBUTEROL 0.5-3(2.5)MG/3ML NEB HHN SCH ×6 (00:40→20:19)
[2018-04-20 04:00] VITALS: BP 120/66
[2018-04-20] MEDS: THEOPHYLLINE ANHYDROUS 80 MG/15 ML 120ML PO SCH ×2 (06:41→13:28)
[2018-04-20 06:45] LABS: HEMATOCRIT 25.5 % (36.0-48.0); HEMOGLOBIN 8.3 g/dL (12.0-16.0); MEAN CORPUSCULAR HEMOGLOBIN 28.2 pg (28.0-32.0); MEAN CORPUSCULAR VOLUME 86.4 fL (81.0-99.0); PLATELET 214 x1000/uL (130-400); RED BLOOD CELL COUNT 2.95 mill/uL (4.2-5.4); RED CELL DISTRIBUTION WIDTH 15.9 % (11.6-14.6)
[2018-04-20 06:58] LABS: CHLORIDE 99 mEq/L (98-107)
[2018-04-20 07:51] VITALS: BP 115/61
[2018-04-20] MEDS: SUCRALFATE 1 G/10 ML UDC PO SCH ×3 (07:58→16:30)
[2018-04-20] MEDS: FAMOTIDINE 20MG TABLET PO SCH (07:58)
[2018-04-20] MEDS: ASPIRIN 325MG EC TABLET PO SCH (07:58)
[2018-04-20] MEDS: DOCUSATE SODIUM 100MG CAPSULE PO PRN (07:58)
[2018-04-20] MEDS: GUAIFENESIN/DM 600MG/30MG ER TAB 12HR PO SCH (07:58)
[2018-04-20] MEDS: METHYLPREDNISOLONE SOD SUCC 40 MG/ML VIAL IV SCH ×2 (07:59→20:01)
[2018-04-20] MEDS: ENOXAPARIN 30MG/0.3ML SYR SUBCUT SCH (08:00)
[2018-04-20] MEDS: BUDESONIDE 0.5MG/2ML NEB HHN SCH ×2 (08:53→20:19)
[2018-04-20] MEDS: LORAZEPAM 0.5MG TABLET PO PRN ×2 (10:12→19:58)
[2018-04-20 11:55] VITALS: BP 145/66
[2018-04-20] MEDS: ACETAMINOPHEN 325MG TABLET PO PRN (13:33)
[2018-04-20 15:54] VITALS: BP 131/72
[2018-04-20] MEDS: MONTELUKAST SODIUM 10MG TABLET PO SCH (16:30)
[2018-04-20 20:06] VITALS: BP 134/76
[2018-04-21 00:23] VITALS: BP 143/60
[2018-04-21] MEDS: IPRATROPIUM/ALBUTEROL 0.5-3(2.5)MG/3ML NEB HHN SCH ×6 (00:33→20:42)
[2018-04-21 04:50] VITALS: BP 137/61
[2018-04-21] MEDS: THEOPHYLLINE ANHYDROUS 80 MG/15 ML 120ML PO SCH ×4 (06:02→21:19)
[2018-04-21] MEDS: SUCRALFATE 1 G/10 ML UDC PO SCH ×5 (06:02→21:18)
[2018-04-21] MEDS: GUAIFENESIN/DM 600MG/30MG ER TAB 12HR PO SCH ×3 (06:02→21:18)
[2018-04-21 07:12] LABS: BASOPHILS % 0.2 % (0.0-2.0); HEMATOCRIT. 27.7 % (36.0-48.0); HEMOGLOBIN. 8.7 g/dL (12.0-16.0); LYMPHOCYTES % 10.6 % (20.0-50.0); MEAN CORPUSCULAR VOLUME 86.3 fL (81.0-99.0); MEAN PLATELET VOLUME 8.5 fl (7.4-10.4); MONOCYTES % 8.4 % (2.0-8.0); NEUTROPHILS % 80.8 % (40.0-76.0); PLATELET 243 x1000/uL (130-400); RED BLOOD CELL COUNT 3.21 mill/uL (4.2-5.4); RED CELL DISTRIBUTION WIDTH 16.2 % (11.6-14.6)
[2018-04-21 07:15] LABS: CHLORIDE 101 mEq/L (98-107)
[2018-04-21] MEDS: BUDESONIDE 0.5MG/2ML NEB HHN SCH (07:35)
[2018-04-21 07:56] VITALS: BP 147/65
[2018-04-21] MEDS: FAMOTIDINE 20MG TABLET PO SCH (10:05)
[2018-04-21] MEDS: ASPIRIN 325MG EC TABLET PO SCH (10:05)
[2018-04-21] MEDS: DOCUSATE SODIUM 100MG CAPSULE PO PRN (10:05)
[2018-04-21] MEDS: METHYLPREDNISOLONE SOD SUCC 40 MG/ML VIAL IV SCH (10:06)
[2018-04-21] MEDS: ENOXAPARIN 30MG/0.3ML SYR SUBCUT SCH (10:06)
[2018-04-21] MEDS: ACETAMINOPHEN 325MG TABLET PO PRN ×2 (10:20→17:33)
[2018-04-21 11:57] VITALS: BP 145/66
[2018-04-21] MEDS: LORAZEPAM 0.5MG TABLET PO PRN ×2 (13:11→21:22)
[2018-04-21 16:25] VITALS: BP 133/71
[2018-04-21] MEDS: MONTELUKAST SODIUM 10MG TABLET PO SCH (18:07)
[2018-04-21 20:00] VITALS: BP 153/59
[2018-04-22] VITALS (7 sets, daily range): BP systolic 111–151; BP diastolic 58–82
[2018-04-22] MEDS: IPRATROPIUM/ALBUTEROL 0.5-3(2.5)MG/3ML NEB HHN SCH ×4 (01:09→12:39)
[2018-04-22] MEDS: SUCRALFATE 1 G/10 ML UDC PO SCH ×2 (06:31→16:27)
[2018-04-22] MEDS: THEOPHYLLINE ANHYDROUS 80 MG/15 ML 120ML PO SCH ×2 (06:32→16:27)
[2018-04-22] MEDS: FAMOTIDINE 20MG TABLET PO SCH (09:00)
[2018-04-22] MEDS: GUAIFENESIN/DM 600MG/30MG ER TAB 12HR PO SCH (09:00)
[2018-04-22] MEDS ORDERED: PREDNISONE 20MG TABLET PO SCH (09:00)
[2018-04-22] MEDS: ASPIRIN 325MG EC TABLET PO SCH (09:00)
[2018-04-22] MEDS: ENOXAPARIN 30MG/0.3ML SYR SUBCUT SCH (09:00)
[2018-04-22] MEDS: LORAZEPAM 0.5MG TABLET PO PRN ×2 (09:00→17:46)
[2018-04-22] MEDS: MONTELUKAST SODIUM 10MG TABLET PO SCH (16:27)
== END 2018-04-22 17:55 | DRG 189 ==
LOC: ER 22:51 → 5EST 04-13 04:42 → ENRESERV 04-13 07:41 → SUPCPDRO 04-13 08:27 → 6WST 04-14 12:18
PROVIDERS: ADMIT Internal Medicine; ATTEND Internal Medicine
PROC: 5A09457 Assistance with Respiratory Ventilation, 24-96 Consecutive Hours, Continuous Positive Airway Pressure (ICD-10-PCS; principal; 2018-04-12)
PROC: 5A09357 Assistance with Respiratory Ventilation, Less than 24 Consecutive Hours, Continuous Positive Airway Pressure (ICD-10-PCS; 2018-04-16)
PROC: 5A09357 Assistance with Respiratory Ventilation, Less than 24 Consecutive Hours, Continuous Positive Airway Pressure (ICD-10-PCS; 2018-04-17)
PROC: 5A09357 Assistance with Respiratory Ventilation, Less than 24 Consecutive Hours, Continuous Positive Airway Pressure (ICD-10-PCS; 2018-04-18)
DX: J96.22 Acute and chronic respiratory failure with hypercapnia (principal); J44.1 Chronic obstructive pulmonary disease with (acute) exacerbation; J98.11 Atelectasis; D63.8 Anemia in other chronic diseases classified elsewhere; F41.9 Anxiety disorder, unspecified; E78.00 Pure hypercholesterolemia, unspecified; I10 Essential (primary) hypertension; G89.4 Chronic pain syndrome; F17.210 Nicotine dependence, cigarettes, uncomplicated; I27.20 Pulmonary hypertension, unspecified; Z91.19 Patient's noncompliance with other medical treatment and regimen; Z99.81 Dependence on supplemental oxygen; Z88.0 Allergy status to penicillin; Z88.8 Allergy status to other drugs, medicaments and biological substances; Z79.899 Other long term (current) drug therapy
CPT/HCPCS: 36415; 36600; 71045; 80048; 80053; 80061; 81003; 82375; 82550; 82553; 82805; 83036; 83880; 84484; 85025; 85027; 87040; 87086; 87804; 93005; 93970; 94640; 94644; 94660; 96365; 96375; 97162; 99291; C1893; J1200; J1650; J1956; J2060; J2405; J2920; J2930; J3475; J7050; J7512; J7611; J7620; J7626